=== PATIENT | female | born 1950 | race Hispanic/Latino ===

== ENCOUNTER 2016-05-15 10:11 | Outpatient (CLI) | payer MEDICARE ==
[2016-05-15 11:02] LABS: #Basophils 0.1 thou/uL (0.0-0.2); #Eosinphils 0.2 thou/uL (0.0-0.7); #Lymphocytes 1.2 thou/uL (1.20-3.40); #Monocytes 0.7 thou/uL (0.11-0.59); #Neutrophils 7.6 thou/uL (1.40-6.50); %Basophils 0.9 % (0.0-1.0); %Eosinophils 1.7 % (0.0-10.0); %Monocytes 6.7 % (0.0-10.0); Mean Platelet Volume 8.6 fL (7.4-10.4); White Blood Cell (WBC) Count 9.6 thou/uL (4.8-10.8)
[2016-05-15 11:22] LABS: ALT (SGPT) 11 U/L (0-55); AST (SGOT) 20 U/L (5-34); Alkaline Phosphatase 94 U/L (40-150); BUN (Urea Nitrogen) 33 mg/dL (9.8-20.1); Bilirubin, Total 0.2 mg/dL (0.2-1.2); Calc. Creatinine Clearance 0 mL/min (70-130); Calcium 8.7 mg/dL (7.8-10.44); Carbon Dioxide 23 mmol/L (23-31); Estimated GFR-MDRD 23; Globulin 4.8 g/dL (2.4-3.5); LDL Cholesterol, Calculated 84 mg/dL; Protein, Total 8.4 g/dL (5.8-8.1)
[2016-05-15 11:33] LABS: Chloride 105 mmol/L (98-107)
[2016-05-15 11:53] LABS: Anion Gap 17 mmol/L (10-20)
== END 2016-05-15 10:12 | disposition home or self-care (01) ==
LOC: HPCALD 10:11
PROVIDERS: ATTEND Physician Assistant
DX: E03.9 Hypothyroidism, unspecified (principal); I10 Essential (primary) hypertension
CPT/HCPCS: 36415; 80053; 80061; 84443; 85025

== ENCOUNTER 2016-08-21 10:51 | Outpatient (CLI) | payer MEDICARE ==
[2016-08-21 13:09] LABS: Anion Gap 15 mmol/L (10-20); BUN (Urea Nitrogen) 37 mg/dL (9.8-20.1); Calc. Creatinine Clearance 0 mL/min (70-130); Calcium 8.6 mg/dL (7.8-10.44); Carbon Dioxide 27 mmol/L (23-31); Chloride 104 mmol/L (98-107); Estimated GFR-MDRD 24; Glucose 67 mg/dL (80-115); Sodium 142 mmol/L (136-145)
[2016-08-21 13:23] LABS: #Basophils 0.1 thou/uL (0.0-0.2); #Eosinphils 0.1 thou/uL (0.0-0.7); #Lymphocytes 1.1 thou/uL (1.20-3.40); #Monocytes 0.4 thou/uL (0.11-0.59); #Neutrophils 3.5 thou/uL (1.40-6.50); %Basophils 1.3 % (0.0-1.0); %Eosinophils 1.6 % (0.0-10.0); %Lymphocytes 21.5 % (21.0-51.0); %Monocytes 7.5 % (0.0-10.0); %Neutrophils 68.1 % (42.0-75.0); Hemoglobin 9.4 g/dL (12.0-16.0); Mean Corpuscular HGB CONC 31.8 g/dL (32.0-36.0); Mean Platelet Volume 10.2 fL (7.4-10.4); Platelet Count 237 thou/uL (130-400); RBC Distribution Width 15.8 % (11.5-14.5); Red Blood Cell (RBC) Count 3.36 mill/uL (4.20-5.40); White Blood Cell (WBC) Count 5.1 thou/uL (4.8-10.8)
[2016-08-21 17:08] LABS: Iron 40 ug/dL (50-170); Iron Binding Capacity, Total 315 mcg/dL (265-497)
[2016-08-21 18:48] LABS: Folate (Folic Acid) 38.1 ng/mL (7.0-31.4)
== END 2016-08-21 10:52 | disposition home or self-care (01) ==
LOC: HPCALD 10:51
PROVIDERS: ATTEND Physician Assistant
DX: D53.9 Nutritional anemia, unspecified (principal); N28.9 Disorder of kidney and ureter, unspecified
CPT/HCPCS: 36415; 80048; 82607; 82746; 83540; 83550; 85025

== ENCOUNTER 2016-09-28 11:40 | Outpatient (CLI) | payer MEDICARE ==
[2016-09-28 12:44] LABS: Hemoglobin 9.9 g/dL (12.0-16.0)
[2016-09-28 12:58] LABS: Anion Gap 17 mmol/L (10-20); BUN (Urea Nitrogen) 33 mg/dL (9.8-20.1); Calc. Creatinine Clearance 0 mL/min (70-130); Carbon Dioxide 27 mmol/L (23-31); Chloride 105 mmol/L (98-107); Estimated GFR-MDRD 24; Glucose 82 mg/dL (80-115); Potassium 3.5 mmol/L (3.5-5.1); Sodium 145 mmol/L (136-145)
[2016-09-28 13:20] LABS: Vitamin D, 25 Hydroxy 33.5 ng/ml (> 30.0)
[2016-09-28 17:14] LABS: Creatinine, Urine 88.18 mg/dL (47-110)
[2016-09-28 17:16] LABS: Iron 33 ug/dL (50-170); Iron Binding Capacity, Total 314 mcg/dL (265-497)
[2016-09-28 17:35] LABS: Ferritin 51.42 ng/mL (10-291)
[2016-09-30 09:10] LABS: Antinuclear AB Negative (Negative)
== END 2016-09-28 11:41 | disposition home or self-care (01) ==
LOC: BURLAB 11:40
PROVIDERS: ATTEND Internal Medicine Nephrology
DX: I12.9 Hypertensive chronic kidney disease with stage 1 through stage 4 chronic kidney disease, or unspecified chronic kidney disease (principal); N18.4 Chronic kidney disease, stage 4 (severe); D63.1 Anemia in chronic kidney disease
CPT/HCPCS: 36415; 80048; 82306; 82570; 82728; 83540; 83550; 83970; 84156; 85014; 85018; 86038

== ENCOUNTER 2016-09-30 12:26 | Outpatient (CLI) | payer MEDICARE ==
--- NOTE | 2016-09-30 21:29 | ULT ---
BILATERAL RENAL ULTRASOUND 09/30/16 Ultrasonography of the kidneys was performed in this patient with chronic kidney disease. The right kidney measures 8.0 x 3.7 x 3.2 cm. The left measures 7.7 x 4.6 x 3.7 cm. No mass or hydro nephrosis was seen in either. The echogenicity of the cortex of each kidney was slightly increased w hich can be seen in chronic renal disease. The thickness of the cortex was adequate bilaterally. Peak flows in the right renal artery were 45/13 and 64/20 on the left. These are within normal limit s. The renal artery to aorta ratio on the right was 1.15 and on the left 1.53. These are both normal . The arcuate artery resistive indices were 0.69 on the right and 0.68 on the left, within normal li mits. Significantly, there was no a large difference between the two. IMPRESSION: 1. Slight increase in parenchymal echogenicity consistent with the clinical findings of chronic kidney disease. No sign of obstruction. 2. No evidence of renal artery stenosis. POS: HOME
== END 2016-09-30 12:27 | disposition home or self-care (01) ==
LOC: BURULT 12:26
PROVIDERS: ATTEND Internal Medicine Nephrology
DX: N18.4 Chronic kidney disease, stage 4 (severe) (principal); N20.0 Calculus of kidney
CPT/HCPCS: 76770; 93976

== ENCOUNTER 2016-11-20 13:33 | Emergency (ER) | payer MEDICARE ==
[2016-11-20 14:00] LABS: #Basophils 0.1 thou/uL (0.0-0.2); #Eosinphils 0.1 thou/uL (0.0-0.7); #Lymphocytes 1.4 thou/uL (1.20-3.40); #Monocytes 0.6 thou/uL (0.11-0.59); #Neutrophils 5.3 thou/uL (1.40-6.50); %Basophils 1.1 % (0.0-1.0); %Eosinophils 1.7 % (0.0-10.0); %Lymphocytes 18.8 % (21.0-51.0); %Monocytes 7.4 % (0.0-10.0); %Neutrophils 71.1 % (42.0-75.0); Hemoglobin 10.4 g/dL (12.0-16.0); Mean Corpuscular HGB CONC 32.6 g/dL (32.0-36.0); Mean Corpuscular Hemoglobin 28.9 pg (27.0-31.0); Mean Corpuscular Volume 88.5 fl (81.0-99.0); Mean Platelet Volume 8.8 fL (7.4-10.4); Platelet Count 214 thou/uL (130-400); RBC Distribution Width 13.2 % (11.5-14.5); Red Blood Cell (RBC) Count 3.61 mill/uL (4.20-5.40); White Blood Cell (WBC) Count 7.5 thou/uL (4.8-10.8)
[2016-11-20 14:16] LABS: INR-International Normal Ratio 1.1; PTT 31.7 SEC (22.9-36.1); Prothrombin Time 14.3 SEC (12.0-14.7)
[2016-11-20 14:21] LABS: Anion Gap 17 mmol/L (10-20); BUN (Urea Nitrogen) 39 mg/dL (9.8-20.1); Calc. Creatinine Clearance 0 mL/min (70-130); Calcium 9.1 mg/dL (7.8-10.44); Carbon Dioxide 27 mmol/L (23-31); Chloride 101 mmol/L (98-107); Estimated GFR-MDRD 16; Glucose 108 mg/dL (80-115); Potassium 3.8 mmol/L (3.5-5.1); Sodium 141 mmol/L (136-145)
== END 2016-11-20 14:38 | disposition home or self-care (01) ==
LOC: BURERS 13:33
DX: D50.9 Iron deficiency anemia, unspecified (principal); I10 Essential (primary) hypertension; Z79.899 Other long term (current) drug therapy
CPT/HCPCS: 80048; 82274; 85025; 85610; 85730; 99284

== ENCOUNTER 2016-12-22 11:01 | Outpatient (CLI) | payer MEDICARE | END 2016-12-22 11:02 | disposition home or self-care (01) | LOC: BURLAB 11:01 | PROVIDERS: ATTEND Internal Medicine Gastroenterology | DX: R10.13 Epigastric pain (principal) | CPT/HCPCS: 36415; 86677 ==

== ENCOUNTER 2017-01-18 17:00 | Emergency (ER) | payer MEDICARE | END 2017-01-18 18:15 | disposition home or self-care (01) | LOC: BURERS 17:00 | DX: R03.0 Elevated blood-pressure reading, without diagnosis of hypertension (principal); Z79.899 Other long term (current) drug therapy | CPT/HCPCS: 99283 ==

== ENCOUNTER 2017-02-16 14:09 | Emergency (ER) | payer MEDICARE ==
[2017-02-16] MEDS ORDERED: Nitroglycerin 0.4 MG TAB (25 Tab Bottle) ONE (14:21)
[2017-02-16] MEDS ORDERED: Nitroglycerin 2% Ointment 1 INCH/1 GM Packet ONE (14:21)
[2017-02-16 14:28] LABS: #Basophils 0.1 thou/uL (0.0-0.2); #Eosinphils 0.1 thou/uL (0.0-0.7); #Lymphocytes 1.3 thou/uL (1.20-3.40); #Monocytes 0.6 thou/uL (0.11-0.59); #Neutrophils 7.4 thou/uL (1.40-6.50); %Basophils 0.9 % (0.0-1.0); %Eosinophils 0.9 % (0.0-10.0); %Lymphocytes 13.4 % (21.0-51.0); %Monocytes 6.6 % (0.0-10.0); %Neutrophils 78.2 % (42.0-75.0); Mean Corpuscular HGB CONC 32.6 g/dL (32.0-36.0); Mean Corpuscular Hemoglobin 29.6 pg (27.0-31.0); Mean Corpuscular Volume 90.9 fl (81.0-99.0); Mean Platelet Volume 11.3 fL (7.4-10.4); Platelet Count 191 thou/uL (130-400); RBC Distribution Width 12.2 % (11.5-14.5); Red Blood Cell (RBC) Count 3.71 mill/uL (4.20-5.40); White Blood Cell (WBC) Count 9.5 thou/uL (4.8-10.8)
[2017-02-16 14:34] LABS: Manual Diff?? YES
[2017-02-16 14:49] LABS: ALT (SGPT) 17 U/L (8-55); AST (SGOT) 26 U/L (5-34); Alkaline Phosphatase 90 U/L (40-150); Anion Gap 18 mmol/L (10-20); BUN (Urea Nitrogen) 42 mg/dL (9.8-20.1); Bilirubin, Total 0.3 mg/dL (0.2-1.2); CK (CPK) 56 U/L (29-168); CKMB 1.2 ng/mL (0-6.6); Calc. Creatinine Clearance 0 mL/min (70-130); Calcium 9.6 mg/dL (7.8-10.44); Carbon Dioxide 23 mmol/L (23-31); Chloride 104 mmol/L (98-107); Estimated GFR-MDRD 21; Globulin 4.4 g/dL (2.4-3.5); Glucose 100 mg/dL (80-115); Lipase 22 U/L (8-78); Potassium 3.4 mmol/L (3.5-5.1); Protein, Total 8.4 g/dL (6.0-8.3); Sodium 142 mmol/L (136-145); Troponin I 0.024 ng/mL (< 0.028)
--- NOTE | 2017-02-16 20:17 | RAD ---
PORTABLE CHEST 02/16/17 An AP portable film at 1411 is compared with the 06/24/15 study. Scarring in the left costophrenic angle is chronic and unchanged. The lungs are clear. No acute infil trate or effusion was seen. The cardiac size is stable and there are no congestive changes. The aorta is densely calcified. No acute bony changes were seen. IMPRESSION: Stable exam showing arterial sclerosis and left basilar scarring but no acute findings. POS: HOME
--- NOTE | 2017-02-16 20:24 | CT ---
CT ABDOMEN AND PELVIS WITHOUT CONTRAST 02/16/17 Comparison is made with a prior CT study of 06/24/15. Axial slices were acquired, then coronal and sagittal reconstructions were done. There is a history of an aortic aneurysm. The lung bases are clear except for an area of scarring in the left costophrenic angle. Some coronary artery calcifications are present and there are some dense calcifications in the aorta itself. The liver, spleen, pancreas, and adrenal glands were unremarkable within the context of a noncontrast study. A gallstone is present in the gallbladder, not a new finding. No gallbladder wall thickening was appreciated. The abdominal aorta transiently dilates as it passes through the diaphragm but the m aximal diameter is 3.2 cm. There is some very dense calcification in the mid to distal abdominal aort a which significantly narrows the lumen, though it does not completely occlude it. Iliac artery calci fications are dense. The kidneys show no mass. Each has an extrarenal pelvis. No true hydronephrosis was appreciated. A ca lcification seen on scan 51 adjacent to the IVC is not in the ureter and can be found on older studie s. It is presumably vascular in nature. The bowel shows no distention, wall thickening or inflammatory changes around it. No free air or free fluid was seen. CT of the pelvis shows no pelvic masses, inflammatory changes, or fluid collections. Degenerative kria nges are present in the spine. IMPRESSION: 1. Not listed above but present is some dilation of the ascending aorta (4.4 cm diameter). 2. Transient dilation of the abdominal aorta as it passes through the diaphragm, maximal diamete r 3.2 cm. Dense arteriosclerosis elsewhere, including in the coronary arteries. 3. Gallstones, though not a new finding. 4. No renal calculi were seen today. No ureteral calculi were seen. POS: HOME
== END 2017-02-16 16:32 | disposition home or self-care (01) ==
LOC: BURERS 14:09
DX: R10.13 Epigastric pain (principal); I10 Essential (primary) hypertension
CPT/HCPCS: 71010; 74176; 80053; 82553; 83690; 84484; 85025; 93005

== ENCOUNTER 2017-06-27 14:20 | Emergency (ER) | payer MEDICARE ==
[2017-06-27 15:02] LABS: #Basophils 0.1 thou/uL (0.0-0.2); #Eosinphils 0.1 thou/uL (0.0-0.7); #Lymphocytes 1.1 thou/uL (1.20-3.40); #Monocytes 0.4 thou/uL (0.11-0.59); #Neutrophils 5.2 thou/uL (1.40-6.50); %Basophils 0.9 % (0.0-1.0); %Lymphocytes 15.6 % (21.0-51.0); %Monocytes 6.3 % (0.0-10.0); %Neutrophils 76.2 % (42.0-75.0); Hemoglobin 10.9 g/dL (12.0-16.0); Mean Corpuscular HGB CONC 36.4 g/dL (32.0-36.0); Mean Corpuscular Hemoglobin 31.4 pg (27.0-31.0); Mean Corpuscular Volume 86.3 fl (81.0-99.0); Mean Platelet Volume 10.6 fL (7.4-10.4); Platelet Count 189 thou/uL (130-400); RBC Distribution Width 12.3 % (11.5-14.5); Red Blood Cell (RBC) Count 3.46 mill/uL (4.20-5.40); White Blood Cell (WBC) Count 6.8 thou/uL (4.8-10.8)
[2017-06-27 15:05] LABS: ALT (SGPT) 13 U/L (8-55); AST (SGOT) 22 U/L (5-34); Albumin 3.8 g/dL (3.4-4.8); Alkaline Phosphatase 85 U/L (40-150); Anion Gap 18 mmol/L (10-20); BUN (Urea Nitrogen) 50 mg/dL (9.8-20.1); Bilirubin, Total 0.4 mg/dL (0.2-1.2); Calc. Creatinine Clearance 0 mL/min (70-130); Calcium 9.3 mg/dL (7.8-10.44); Carbon Dioxide 23 mmol/L (23-31); Chloride 106 mmol/L (98-107); Estimated GFR-MDRD 12; Globulin 3.7 g/dL (2.4-3.5); Glucose 123 mg/dL (80-115); Potassium 3.6 mmol/L (3.5-5.1); Protein, Total 7.5 g/dL (6.0-8.3); Sodium 143 mmol/L (136-145)
[2017-06-27 15:08] LABS: CKMB 1.3 ng/mL (0-6.6); Troponin I 0.028 ng/mL (< 0.028)
[2017-06-27] MEDS ORDERED: Furosemide 40 MG/4 ML VIAL ONE (15:18)
[2017-06-27] MEDS ORDERED: traMADol HCl 50 MG TAB ONE (16:08)
[2017-06-27 16:15] LABS: Bilirubin Negative (Negative); Blood, Urine Trace (Negative); Clarity Clear (Clear); Glucose, Urine (Dipstick) Negative (Negative); Leukocyte Negative (Negative); Nitrite Negative (Negative); Protein, Urine (Dipstick) > or equal to 300 mg/dL (Neg-Trace); Urobilinogen 0.2 mg/dL (0.2-1.0); pH, Urine 5.5 (5.0-9.0)
[2017-06-27 16:18] LABS: RBC/HPF 0-3 HPF (0-3); Squamous Epithelial 0-3 HPF (0-3); WBC/HPF 0-3 HPF (0-3)
[2017-06-27 16:19] LABS: Bacteria/HPF Rare-Few HPF (None Seen)
--- NOTE | 2017-06-27 16:27 | RAD ---
PORTABLE CHEST: Date: 06-27-17 Time: 1428 Comparison: 02-16-17 FINDINGS: There has been no adverse interval change. Heart size is the same. There are no congestive changes or pleural effusions. Chronic scarring with blunting of the left costophrenic angle is present as befor e. Dense arterial sclerosis is seen in the aortic arch. There are no pulmonary infiltrates. IMPRESSION: Chronic changes. No acute findings. POS: HOME
== END 2017-06-27 16:54 | disposition home or self-care (01) ==
LOC: BURERS 14:20
DX: I12.9 Hypertensive chronic kidney disease with stage 1 through stage 4 chronic kidney disease, or unspecified chronic kidney disease (principal); N18.9 Chronic kidney disease, unspecified; R60.0 Localized edema; Z79.02 Long term (current) use of antithrombotics/antiplatelets; Z79.899 Other long term (current) drug therapy
CPT/HCPCS: 71045; 80053; 81003; 81015; 82553; 83880; 84484; 85025; 93005; 94760; 96374; J1940

== ENCOUNTER 2017-10-24 11:02 | Emergency (ER) | payer MEDICARE ==
--- NOTE | 2017-10-24 14:57 | CT ---
CT OF THE BRAIN WITHOUT CONTRAST: DATE: 10/24/17. FINDINGS: A noncontrast CT was done following trauma. Diffuse atrophy is present with mild compensatory dilata tion of the ventricles. Mild deep white matter lucency is typical of chronic ischemic change. There is no intracranial bleeding or extraaxial hematoma. No mass, edema, or sign of acute stroke was fou nd. The skull appears intact and the sphenoid sinus is clear. The sella is somewhat generous in siz e and probably partially empty. There is some minor mucosal thickening in one of the right posterior ethmoid air cells. IMPRESSION: Atrophy and chronic ischemic changes, but no acute intracranial findings. POS: HOME
== END 2017-10-24 12:35 | disposition home or self-care (01) ==
LOC: BURERS 11:02
DX: S80.211A Abrasion, right knee, initial encounter (principal); G30.9 Alzheimer's disease, unspecified; F02.80 Dementia in other diseases classified elsewhere, unspecified severity, without behavioral disturbance, psychotic disturbance, mood disturbance, and anxiety; I10 Essential (primary) hypertension; W01.0XXA Fall on same level from slipping, tripping and stumbling without subsequent striking against object, initial encounter
CPT/HCPCS: 70450